=== PATIENT | female | born 1980 | race Caucasian/White ===

== ENCOUNTER → 2021-04-14 07:23 | Outpatient (CLI) | payer OTHER, SELFPAY ==
--- NOTE | ~2021-04-14 | MM_ITS ---
EXAMINATION: MM screening emilie BI w mary grace HISTORY: Screening mammogram TECHNIQUE: Craniocaudal and mediolateral oblique 3-D tomosynthesis images were obtained and synthetic 2-D images were generated. CAD analysis was submitted and interpreted. COMPARISON: 03/24/2019 BREAST PARENCHYMAL COMPOSITION: The breasts are heterogeneously dense, which may obscure small masses . FINDINGS: There is no evidence of suspicious mass, calcification, or architectural distortion to sugg est malignancy in either breast. There has been no suspicious interval change. IMPRESSION: 1. No mammographic evidence of malignancy. 2. Recommend routine screening mammography in one year. BI-RADS Category 1: Negative Reviewed, dictated and finalized at location A. T [employer] SUPERVISOR
== END ==
PROVIDERS: PCP Physician Assistant; Visit Provider Obstetrics & Gynecology
DX: Z12.31 Encounter for screening mammogram for malignant neoplasm of breast (principal)
CPT/HCPCS: 77063; 77067

== ENCOUNTER 2021-05-08 16:22 | Emergency (ER) | payer OTHER, SELFPAY ==
--- NOTE | ~2021-05-08 | XR_ITS ---
XR foot LT min 3V 05/08/2021 16:46 INDICATION: Left foot pain PROCEDURE: 4 views left foot COMPARISON: No prior studies for comparison. FINDINGS: Fracture, dislocation or subluxation is not identified. Lisfranc joint intact. The soft tis sues appear within normal limits. No foreign bodies are identified. IMPRESSION: 1: NO ACUTE BONE OR JOINT ABNORMALITY IDENTIFIED. Reviewed, dictated and finalized at location A. ING ASSOCIATE
--- NOTE | ~2021-05-08 | XR_ITS ---
XR ankle LT min 3V 05/08/2021 17:09 Indication: Left ankle pain after injury Procedure: 4 views left ankle Comparison: No prior studies for comparison. Findings: No fracture or traumatic malalignment. There is mild lateral soft tissue swelling. There is a punctate foreign body in the lateral soft tissues above the ankle mortise. Impression: 1: No acute fracture. Reviewed, dictated and finalized at location A. CULAR GENETIC PATHOLOGIST Impression: 1: No acute fracture.
[2021-05-08 16:46] VITALS: BP 129/77; PULSE 76; RESP 16; TEMP 36.3; O2SAT 99
--- NOTE | 2021-05-08 16:54 | ED.GENADULT ---
HPI - General Adult General Chief complaint: Extremity Injury, Lower Stated complaint: Left ankle injury Source: patient Mode of arrival: ambulatory Limitations: no limitations History of Present Illness HPI narrative: Patient presents for evaluation of left ankle/foot pain since Sunday. She had her legs crossed while seated in a chair at home. She stood up and began ambulating, not realizing that her foot was asleep . She turned her ankle and felt a pop in that area. Since that time she has had intermittent swelling. She has applied ice and taken ibuprofen. Symptoms seem to improve with those interventions however she has recurrence of her symptoms thereafter. She is still able to ambulate. No paresthesias. She describes her symptoms as being uncomfortable . Related Data Home Medications Medication Instructions Recorded Confirmed atorvastatin 05/08/21 metoprolol succinate PO 05/08/21 Allergies Allergy/AdvReac Type Severity Reaction Status Date / Time No Known Allergies Allergy Unknown Verified 09/24/02 09:55 Review of Systems Review of Systems: CONSTITUTIONAL: Denies fever, chills, or sweats. EYES: Denies visual changes, redness, or discharge. ENT: Denies rhinorrhea, congestion, sore throat, or otalgia. CARDIOVASCULAR: Denies chest pain, palpitations, or edema. RESPIRATORY: Denies cough or dyspnea. GASTROINTESTINAL: Denies abdominal pain, nausea, vomiting, or diarrhea. GENITOURINARY: Denies dysuria or hematuria. SKIN: Denies rash or itching. MUSCULOSKELETAL: Reports left ankle pain and swelling. Denies back pain or myalgia. NEUROLOGIC: Denies headache, numbness, dizziness, or weakness. PSYCHIATRIC: Denies anxiety or depression. [facility] Past Medical History Medical History (Updated 05/08/21 @ 17:26 by TAL Coley, ) No pertinent past medical history Surgical History Surgical History History of knee surgery Family History Family History Other Family history of arthritis Hypertension Social History Social History Smoking status: Never smoker Alcohol intake: never Living arrangements: with family Gender identity (if verbalized by the patient): Female Sexual Orientation (if Verbalized by the Patient): Straight or Heterosexual Spiritual care concerns: No Exam Narrative: GENERAL: Well-appearing, well-nourished, and in no acute distress. HEAD: Normocephalic, atraumatic. EYES: PERRLA and EOMI. ENT: Nares clear, no rhinorrhea or epistaxis. Mucous membranes moist. Oropharynx without tonsillar hypertrophy exudate or other lesions. Bilateral TMs pearly buchanan nonbulging NECK: Supple. No adenopathy or masses. No carotid bruits or JVD CHEST: Clear to auscultation. No respiratory distress. No wheezes rales or rhonchi HEART: Regular rate and rhythm. No murmur heard. Normal peripheral pulses. ABDOMEN: Soft, nontender, nondistended, normal active bowel sounds. EXTREMITIES: There is swelling over the lateral malleolus on the left. There is no crepitus or deformity. Able to to the left foot. No significant tenderness in the left foot or ankle. Normal range of motion. SKIN: Warm, dry, no rash. NEURO: No focal deficits. Alert and oriented x3. PSYCH: Normal mood and affect. Course Course Emergency Course: This is a 41-year-old female who present with complaints of left ankle/foot pain and swelling following injury on Sunday. X rays were negative for fracture. Exam consistent with sprain. Advised RICE therapy. She declined splint here. Encouraged her to purchase OTC velcro ankle stirrup splint. She may take NSAIDs for pain. Offered script for analgesics, which she declined. She should follow up with ortho and return for worsening symptoms. Pt in agreement with plan of care. Level of Care
== END 2021-05-08 17:33 | disposition home or self-care (01) ==
PROVIDERS: Emergency Provider Nurse Practitioner
DX: S93.402A Sprain of unspecified ligament of left ankle, initial encounter (principal); X50.9XXA Other and unspecified overexertion or strenuous movements or postures, initial encounter
CPT/HCPCS: 73610; 73630; 99213; G0463

== ENCOUNTER → 2023-01-22 07:19 | Outpatient (CLI) | payer OTHER, SELFPAY ==
--- NOTE | ~2023-01-22 | MM_ITS ---
EXAMINATION: MM screening emilie BI w mary grace HISTORY: Screening mammogram TECHNIQUE: Craniocaudal and mediolateral oblique 3-D tomosynthesis images were obtained and synthetic 2-D images were generated. CAD analysis was submitted and interpreted. COMPARISON: April 14, 2021, March 24, 2019 bilateral screening mammogram examinations BREAST PARENCHYMAL COMPOSITION: There are scattered areas of fibroglandular density. FINDINGS: There is no evidence of suspicious mass, calcification, or architectural distortion to sugg est malignancy in either breast. There has been no suspicious interval change. IMPRESSION: 1. No mammographic evidence of malignancy. 2. Recommend routine screening mammography in one year. BI-RADS Category 1: Negative Reviewed, dictated and finalized at location A. [employer]
== END ==
PROVIDERS: PCP Obstetrics & Gynecology; Visit Provider Obstetrics & Gynecology
DX: Z12.31 Encounter for screening mammogram for malignant neoplasm of breast (principal)
CPT/HCPCS: 77063; 77067

== ENCOUNTER 2023-08-16 05:53 | Day surgery (SDC) | payer OTHER, SELFPAY ==
[2023-06-11 09:26] VITALS: BMI 32.1
[2023-08-09 14:55] VITALS: BMI 29.4
[2023-08-16 06:15] VITALS: BP 126/90; PULSE 71; RESP 14; TEMP 36.3; O2SAT 99
[2023-08-16 06:27] VITALS: BMI 29.7
--- NOTE | 2023-08-16 07:09 | PM.HPGS ---
History of Present Illness History of Present Illness Consent: Risks, benefits, and alternatives have been discussed and questions answered. Patient agrees to proceed with procedure. Chief complaint: Screening neoplasm of colon Narrative: Philomena Edwards is a 43 year old female presents for screening colonoscopy. Patient's current weight appetite and bowel movements are normal. She denies abdominal pain. She has had no bleeding. Family history is noncontributory. Review of Systems Review of Systems: All systems reviewed & are unremarkable except as noted in HPI and below PMFSH Past Medical History Medical History (Updated 08/16/23 @ 07:10 by Tyree Jasso MD) Gestational hypertension Hyperlipidemia No pertinent past medical history Screening mammogram, encounter for Surgical History Surgical History History of hysteroscopy (01/14/09) NOVASURE ABLATION, T/L HSCOPE, D&C History of knee surgery 1996, 1997, 1999 LEFT KNEE SURGERY Family History Family History Father Hypertension Grandparent Cerebrovascular accident maternal grandfather Other Family history of arthritis Social History Social History (Updated 11/20/22 @ 15:38 by ALEXIS Gleason) Smoking status: Never smoker Second hand tobacco smoke exposure: No Alcohol intake: current Alcohol use details: 2 DRINKS MONTHLY Substance use: never Substance use type: does not use Living arrangements: with family Additional living arrangements comments: Occupation/Education: occupation Additional occupation/education comments: teacher Gender identity (if verbalized by the patient): Female Sexual Orientation (if Verbalized by the Patient): Straight or Heterosexual Spiritual care concerns: No Meds Home Medications and Allergies Home Medications Medication Instructions Recorded Confirmed Type atorvastatin 10 mg tablet 10 mg PO DAILY 05/08/21 08/16/23 History metoprolol succinate 25 mg 25 mg PO DAILY 05/08/21 08/16/23 History tablet,extended release 24 hr hydrochlorothiazide 12.5 mg tablet 12.5 mg PO DAILY 08/09/23 08/16/23 History levothyroxine 50 mcg tablet 50 mcg PO DAILY 08/09/23 08/16/23 History (Synthroid) Allergies Allergy/AdvReac Type Severity Reaction Status Date / Time No Known Allergies Allergy Unknown Verified 08/16/23 06:23 Vital Signs Vital Signs - 24 hr 06/13/24 06:15 Temperature 97.3 F L Pulse Rate 71 Respiratory Rate 14 Blood Pressure 126/90 Pulse Oximetry 99 Oxygen Delivery Room Air Exam Narrative: Physical exam reveals patient to be alert. Signs stable. HEENT exam is unremarkable. Patient is anicteric. Lungs are clear to auscultation and to percussion. Heart is without murmur or extra sounds. Abdominal exam bowel sounds are present soft nontender with no organomegaly. Digital external rectal exam is normal. Assessment and Plan Assessment and plan (1) Screen for colon cancer: Code(s): Z12.11 - Encounter for screening for malignant neoplasm of colon Status: Acute Assessment and Plan: Patient presents today for screening colonoscopy. She appears to be at average risk for colon polyps.
--- NOTE | 2023-08-16 07:17 | WPDANESEPPF ---
Anes - Initial Pre Proc Eval Procedure: Operation Date: 08/16/23 07:30 Proposed Procedures p Screening Colonoscopy - Tyree Jasso MD Date/Time: 08/16/23 07:17 Surgeon: Tyree Jasso MD Pre Op Diagnosis: Screening neoplasm of colon Patient Data Age: 43 Gender: F Height: 1.78 m Weight: 93.8 kg Last Vital Signs Temp 36.3 C L 08/16/23 06:15 Pulse 71 08/16/23 06:15 Resp 14 08/16/23 06:15 BP 126/90 08/16/23 06:15 Pulse Ox 99 08/16/23 06:15 O2 Del Method Room Air 08/16/23 06:15 Allergies Allergy/AdvReac Type Severity Reaction Status Date / Time No Known Allergies Allergy Unknown Verified 08/16/23 06:23 Home Medications Medication Instructions Recorded Confirmed Type atorvastatin 10 mg tablet 10 mg PO DAILY 05/08/21 08/16/23 History metoprolol succinate 25 mg 25 mg PO DAILY 05/08/21 08/16/23 History tablet,extended release 24 hr hydrochlorothiazide 12.5 mg tablet 12.5 mg PO DAILY 08/09/23 08/16/23 History levothyroxine 50 mcg tablet 50 mcg PO DAILY 08/09/23 08/16/23 History (Synthroid) Patient hx anesthesia problems: none Family hx anesthesia problems: none Results Review: All pre-operative results and documents have been reviewed as part of the pre-operative evaluation. [facility] Past Medical History Medical History Gestational hypertension Hyperlipidemia No pertinent past medical history Screening mammogram, encounter for Surgical History Surgical History History of hysteroscopy (01/14/09) NOVASURE ABLATION, T/L HSCOPE, D&C History of knee surgery 1996, 1997, 1999 LEFT KNEE SURGERY Family History Family History Father Hypertension Grandparent Cerebrovascular accident maternal grandfather Other Family history of arthritis Social History Social History Smoking status: Never smoker Second hand tobacco smoke exposure: No Alcohol intake: current Alcohol use details: 2 DRINKS MONTHLY Substance use: never Substance use type: does not use Living arrangements: with family Additional living arrangements comments: Occupation/Education: occupation Additional occupation/education comments: teacher Gender identity (if verbalized by the patient): Female Sexual Orientation (if Verbalized by the Patient): Straight or Heterosexual Spiritual care concerns: No Anes - Eval Final PreProcedure Day of Procedure 08/16/23 07:17 Patient weight: overweight Heart: regular rate and rhythm Lungs: clear to auscultation Airway: Mallampati scale class II Neurological: alert and oriented Last oral intake: >/= 8 hours ASA classification: II Emergent: no Anesthetic plan: proceed Anesthesia type and monitoring: general GIVS and standard monitoring Results Review: All pre-operative results and documents have been reviewed as part of the pre-operative evaluation. Informed Consent: The patient's anesthetic plan and its attendant risks and benefits were discussed with the patient/family/POA. Questions were solicited and answers provided to the satisfaction of the patient/family/POA.
[2023-08-16] MEDS: LACTATED RINGERS 1,000 ML 150 ML IV CONT (07:23)
[2023-08-16 07:42] VITALS: BP 105/66; PULSE 57; RESP 14; O2SAT 98
[2023-08-16 07:52] VITALS: BP 106/75; PULSE 59; RESP 16; O2SAT 100
[2023-08-16 08:02] VITALS: BP 109/75; PULSE 57; RESP 16; O2SAT 99
--- NOTE | 2023-08-16 08:05 | WPDANESPN ---
Anes - Prog Note Post-Op Date/Time: 08/16/23 08:05 Cardiovascular status: normal Respiratory status: normal Airway patency: baseline Mental status: baseline Post-Op hydration status: normal Vital Signs: Last Vital Signs Temp 36.3 C L 08/16/23 06:15 Pulse 57 L 08/16/23 08:02 Resp 16 08/16/23 08:02 BP 109/75 08/16/23 08:02 Pulse Ox 99 08/16/23 08:02 O2 Del Method Room Air 08/16/23 08:02 Pain Score (VAS): 0/10 I/O: Intake & Output 08/15/23 08/16/23 08/16/23 23:59 07:59 15:59 Intake Total 500 Balance 500 Patient Feedback: Patient satisfied with anesthetic care.
== END 2023-08-16 08:05 | disposition home or self-care (01) ==
PROVIDERS: PCP Physician Assistant; Visit Provider Internal Medicine Gastroenterology
PROC: 0DJD8ZZ Inspection of Lower Intestinal Tract, Via Natural or Artificial Opening Endoscopic (ICD-10-PCS; CPT 45378; principal; 2023-08-16 07:30)
DX: Z12.11 Encounter for screening for malignant neoplasm of colon (principal)
CPT/HCPCS: 45378

== ENCOUNTER 2024-06-23 09:52 | Outpatient (CLI) | payer OTHER, SELFPAY ==
--- NOTE | ~2024-06-23 | MM_ITS ---
EXAMINATION: MM screening emilie BI w mary grace HISTORY: Screening TECHNIQUE: Craniocaudal and mediolateral oblique 3-D tomosynthesis images were obtained and synthetic 2-D images were generated. CAD analysis was submitted and interpreted. COMPARISON: 01/22/2023 and dating back to 03/24/2019 BREAST PARENCHYMAL COMPOSITION: The breasts are heterogeneously dense, which may obscure small masses . FINDINGS: Punctate calcifications detected bilaterally, stable and benign in appearance, dermal in or igin. Stable parenchymal pattern without suspicious microcalcifications, architectural distortion, discrete masses or significant asymmetry. IMPRESSION: 1. No mammographic evidence of malignancy. 2. Recommend routine screening mammography in one year. BI-RADS Category 2: Benign finding(s). Reviewed, dictated and finalized at location A.
== END 2024-06-23 09:53 | disposition home or self-care (01) ==
LOC: MICIMG 09:53
PROVIDERS: PCP Physician Assistant; Visit Provider Obstetrics & Gynecology
DX: Z12.31 Encounter for screening mammogram for malignant neoplasm of breast (principal)
CPT/HCPCS: 77063; 77067